=== PATIENT | female | born 1935 | race Caucasian/White ===

== ENCOUNTER 2018-04-03 20:13 | Emergency (ER) | payer MEDICARE ==
[~2018-04-03] VITALS: Ht 157.5 cm; Wt 61.7 kg
[2018-04-03 20:16] VITALS: BP 140/77
--- NOTE | 2018-04-03 20:35 | NUR ---
PT PRESENTED TO THE ER WITH A C/O LLE PAIN THAT RADIATES FROM THE BACK DOWN THE LLE. PT AMBULATED TO BED #12 WITH A SLOW STEADY GAIT. PT HAS A SERVICE DOG AT THE BEDSIDE. PT'S DAUGHTER IS ALSO AT THE BEDSIDE. PT TOOK 1 PERCOCET AT 7AM AND 1GM TYLENOL THIS AFTERNOON. PT STATED THAT SHE DOES NOT HAVE PAIN WHILE LYING DOWN, BUT INCREASED PAIN WITH AMBULATION.
--- NOTE | 2018-04-03 20:43 | NUR ---
VENOUS DOPPLER TECH IS AT THE BEDSIDE. PT'S DAUGHTER TOOK THE SERVICE DOG OUT FOR A WALK.
--- NOTE | 2018-04-03 21:13 | NUR ---
VENOUS DOPPLER FINISHED.
== END 2018-04-03 21:32 | disposition home or self-care (01) ==
LOC: ER 20:13
DX: R25.2 Cramp and spasm (principal); M25.562 Pain in left knee; I10 Essential (primary) hypertension; J44.9 Chronic obstructive pulmonary disease, unspecified; Z86.711 Personal history of pulmonary embolism
CPT/HCPCS: 93970; 99284; A4606; Z7610

== ENCOUNTER 2019-02-26 20:06 | Emergency (ER) | payer MEDICARE, OTHER ==
[~2019-02-26] VITALS: Ht 165.1 cm; Wt 56.7 kg
--- NOTE | 2019-02-26 20:26 | NUR ---
[facility] ambulance for s/p fall. with postrior head laceration. a, ox4. breathing evenly. no SOB. seen by MD. gowned up and placed on a monitor, will cont to monitor ,
--- NOTE | 2019-02-26 20:31 | NUR ---
PT IN RADIOLOGY AT THIS TIME.
--- NOTE | 2019-02-26 22:18 | NUR ---
posterior head with two inrtact liza in place. with very minimal bleeding,. no report of pain or discomfort. dressing was applied on the head and it was secured properly. Patient discharged to home in stable condition. Written and verbal after care instructions given. Patient / family verbalizes understanding of instruction.
[2019-02-26 22:21] VITALS: BP 143/102
== END 2019-02-26 22:22 | disposition home or self-care (01) ==
LOC: ER 20:07
DX: S01.01XA Laceration without foreign body of scalp, initial encounter (principal); S90.02XA Contusion of left ankle, initial encounter; I10 Essential (primary) hypertension; J44.9 Chronic obstructive pulmonary disease, unspecified; Z98.890 Other specified postprocedural states; Z86.711 Personal history of pulmonary embolism; W18.39XA Other fall on same level, initial encounter; Y93.89 Activity, other specified; Y92.89 Other specified places as the place of occurrence of the external cause; Y99.8 Other external cause status
CPT/HCPCS: 12001; 70450; 72125; 73610; 99284; A6402; A6403

== ENCOUNTER 2019-03-08 14:41 | Emergency (ER) | payer OTHER ==
[~2019-03-08] VITALS: Ht 160 cm; Wt 55.8 kg
[2019-03-08 14:50] VITALS: BP 154/127
== END 2019-03-08 15:01 | disposition home or self-care (01) ==
LOC: ER 14:43
DX: S01.01XD Laceration without foreign body of scalp, subsequent encounter (principal); I10 Essential (primary) hypertension; J44.9 Chronic obstructive pulmonary disease, unspecified; E78.00 Pure hypercholesterolemia, unspecified; Z86.711 Personal history of pulmonary embolism; Z98.890 Other specified postprocedural states; X58.XXXD Exposure to other specified factors, subsequent encounter
CPT/HCPCS: Z7502